=== PATIENT | female | born 1980 | race Two or more races ===

== ENCOUNTER → 2024-10-16 | Outpatient (CLI) | payer MEDICAID, SELFPAY ==
--- NOTE | 2024-10-16 13:45 | XR_ITS ---
Examination: Screening digital mammography, bilateral Computer aided detection 3-D breast Tomosynthesis, bilateral Date and time of exam: October 16, 2024 1305 hours Comparison November 18, 2009 Indication: Screening Technique: Nonmagnified MLO, CC views of the breasts to been obtained, reconstructed from 3-D Tomosynthesis images. R2 computer aided detection program utilized for evaluation of suspicious masses and/or abnormal calcifications. 3-D Tomosynthesis images obtained. Findings: The breasts are heterogeneously dense, which may obscure small masses Benign calcifications. No interval suspicious masses Impression: BI-RADS category II: Benign Findings. Recommend 1 year follow-up mammogram.
== END | disposition home or self-care (01) ==
LOC: CDIM 11:48
PROVIDERS: Referring Provider Nurse Practitioner Family; Visit Provider Nurse Practitioner Family
DX: Z12.31 Encounter for screening mammogram for malignant neoplasm of breast (principal); R92.323 Mammographic fibroglandular density, bilateral breasts; R92.1 Mammographic calcification found on diagnostic imaging of breast
CPT/HCPCS: 77063; 77067

== ENCOUNTER → 2024-11-22 | Outpatient (CLI) | payer MEDICAID, SELFPAY ==
--- NOTE | 2024-11-22 14:00 | XR_ITS ---
Examination: Retroperitoneal ultrasound, complete Technique: Multiple high resolution grayscale images of the retroperitoneum obtained, including kidneys and bladder. Exam date and time:November 22, 2024 1602 hours INDICATIONS: Bilateral flank pain beginning 6 months ago. FINDINGS: Right kidney 10.0 cm cortex 1.6 cm Left kidney 11.4 cm renal cortex 1.8 cm Mild right and moderate left renal parenchymal scar formation No hydronephrosis. No bladder mass or bladder calculi. Bladder prevoid volume 365 cc postvoid volume 0 cc IMPRESSION: Mild right moderate left renal parenchymal scar formation No hydronephrosis
== END | disposition home or self-care (01) ==
LOC: CDIM 14:11
PROVIDERS: PCP Nurse Practitioner Family; Referring Provider Nurse Practitioner Family; Visit Provider Nurse Practitioner Family
DX: N28.89 Other specified disorders of kidney and ureter (principal)
CPT/HCPCS: 76770

== ENCOUNTER 2025-04-15 13:45 | Outpatient (AMB) | payer MEDICAID, SELFPAY ==
[2025-04-15 14:15] VITALS: BP 118/72; PULSE 62; RESP 16; TEMP 36.2; O2SAT 98
--- NOTE | 2025-04-15 14:15 | GYNCLNT_ITS ---
Vital Signs 04/15/25 14:15 Weight 77.224 kg Weight Measurement Method Standing Scale BP 118/72 Blood Pressure Source Automatic Cuff Blood Pressure Location Left Upper Arm Position Sitting Respiration 16 Pulse 62 Pulse Source Monitor Temp 97.2 F Temp Source Oral Pulse Oximetry (%) 98 Oxygen Delivery Method Room Air Allergies/Home Meds Allergies & Medications Allergies No Known Allergies Allergy (Unknown, Uncoded 04/15/25 14:15) Medication Reconciliation carisoprodol 350 mg tablet 350 mg PO TID PRN BACK SPASM #0 tabs 06/28/16 [History Confirmed 04/15/25] Intake Visit Data Collection New Patient or Established: Established Patient (seen at [facility] within 3 years) Reason for Visit:: OBC Seen by Clinical Staff ONLY (RN/MA): No Fashion Director Required: No Do You Feel Safe at Home: Yes Authorities Contacted: N/A PCP or OBGYN visit in last 3 months: Yes Hx Now: No Are you currently on any form of Control: No Last menstrual period: 03/25/25 Pain Present Currently: No Pain Scale Used: Woo-Lopez/Numerical Pain scale:: 0 Smoking Status Smoking Status: Never smoker 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 1. Little interest or pleasure in doing things: not at all 2. Feeling down, depressed, or hopeless: not at all Total score: 0 PHQ-9 3. Trouble falling or staying asleep, or sleeping too much: Not at all 4. Feeling tired or having little energy: Not at all 5. Poor appetite or overeating: Not at all 6. Feeling bad about yourself - or that you are a failure or have let yourself or your family down: Not at all 7. Trouble concentrating on things, such as reading the newspaper or watching television: Not at all 8. Moving or speaking so slowly that other people could have noticed? - Or the opposite - being so fidgety or restless that you have been moving around a lot more than usual: not at all 9. Thoughts that you would be better off or of hurting yourself in some way: Not at all Total score: 0 If you checked off any problems, how difficult have these problems made it for you to do your work, take care of things at home, or get along with other people?: not difficult at all Source: Developed by Drs. Aki Main, Kiah Mccormick, Jase Hernández and colleagues, with an educational dalton from [employer]. Depression screen completed yes Social History Living Situation History Marital Status: Single Lives With: Family Housing: House Tobacco History Smoking Status: Never smoker Second Hand Smoke Exposure: No Alcohol History Alcohol Intake: Current Domestic Abuse History Do You Feel Safe at Home: Yes History of Present Illness HPI Narrative Abnormal uterine bleeding, chronic anemia, periods three times a month with heavy bleeding, hip pain, groin pain, incomplete bladder emptying, frequent urination at night, sensation of pressure Myron Mraquez is a 44-year-old female referred from [facility] for abnormal uterine bleeding. She presents with chronic anemia and frequent uterine bleeding, experiencing periods three times a month with heavy flow. The patient reports severe symptoms during her periods, including heavy bleeding, fatigue, and lightheadedness. She has not required a blood transfusion but may need one if the bleeding continues. Previous attempts to manage her symptoms with control pills were ineffective. Myron also complains of hip pain, groin pain, and incomplete bladder emptying, accompanied by frequent urination at night and a sensation of pressure. The patient's symptoms are significantly impacting her daily life, causing chronic anemia and frequent bleeding. She has not discontinued any treatments but reports that previous control pills were ineffective in managing her symptoms. Medical History: - Chronic anemia - Back injury Surgical History: - Spine surgery (microdiscectomy) in [address] Mora in [place], improved mobility - for twin delivery Obstetric History: - GPAL: L5 - One resulted in twins, delivered via - Two other pregnancies resulted in brody births Social History: - Has five children Diagnostic Test Results and Labs: - CBC (11-06-2024): Hemoglobin 12.5 g/dL, platelets 347 - A1C (11-06-2024): 5.9% - TSH (11-06-2024): 0.856 - T4 (11-06-2024): 1.11 - Testosterone (11-06-2024): 9 - Prolactin (11-06-2024): 12.4 - Estradiol (11-06-2024): 45.4 - Progesterone (11-06-2024): 2.4 - Estrogen (11-06-2024): 119 - FSH (11-06-2024): 4.7 - LH (11-06-2024): 3.1 - dHL (11-06-2024): 219 Exam General General Appearance: alert, in no apparent distress and healthy appearing Head Head exam: atraumatic Neck Neck exam: Present normal inspection and trachea midline Chest Chest inspection: Present normal inspection and symmetric chest wall rise External exam: Present normal external exam; Absent tenderness Neuro Neurological exam: Present oriented X3 Psych Psychiatric exam: Present normal affect and normal mood Office Procedures OB Clinic LOC & Office Proc's Nursing/Assessment Patient Status: Established Patient OB Clinic Nursing Assessment: Medication Reconciliation, Update PMH in EMR and Vital Signs OB Clinic Coordination of Care: Education Complex Pt/Fam, Consent,records obtained, informed consent, Lab and Imaging orders, Results/Orders obtained and Staff clarify orders Established Patient Charge Established Patient Point Assignment: 85 Established Patient Point Charge: EP Level 3 (80-115) Assessment & Plan Diagnosis / Problem List (1) Abnormal uterine bleeding (AUB): Status: Acute Plan Abnormal Uterine Bleeding Assessment: Patient presents with chronic anemia and frequent uterine bleeding, experiencing periods three times a month with heavy bleeding. Previous control pills were ineffective. Lab results show normal hemoglobin (12.5), platelets (347), and hormone levels. The patient reports severe symptoms during periods, including heavy bleeding, fatigue, and lightheadedness. Differential diagnoses include dysfunctional uterine bleeding and structural abnormalities such as fibroids. A structural screening via ultrasound is needed to rule out fibroids or other abnormalities. Plan: - Schedule abdominal ultrasound to evaluate uterine structure - Discuss treatment options based on ultrasound results - Monitor for worsening anemia and potential need for blood transfusion - Follow up after ultrasound to discuss results and treatment plan Chronic Anemia Assessment: Patient has a history of chronic anemia, likely secondary to abnormal uterine bleeding. Recent lab results show hemoglobin of 12.5, which is within normal range. However, the patient reports symptoms of fatigue and lightheadedness during periods, suggesting potential for worsening anemia if bleeding continues. Plan: - Monitor hemoglobin levels regularly - Educate patient on signs and symptoms of worsening anemia - Consider iron supplementation if hemoglobin levels decrease - Evaluate need for blood transfusion if anemia worsens significantly Urinary Symptoms Assessment: Patient reports incomplete bladder emptying, frequent urination at night, and a sensation of pressure. These symptoms may be related to the patient's uterine condition or could be a separate issue requiring further evaluation. Plan: - Evaluate urinary symptoms in context of ultrasound results - Consider urological referral if symptoms persist after addressing gynecological issues Hip and Groin Pain Assessment: Patient reports hip and groin pain. Given her history of back injury and previous spine surgery, these symptoms may be related to her spinal condition or could be a separate issue requiring further evaluation. Plan: - Assess hip and groin pain in relation to gynecological findings - Consider orthopedic or neurosurgical referral if pain persists after addressing gynecological issues
== END 2025-04-15 14:38 | disposition home or self-care (01) ==
LOC: HODSOBC 13:45
PROVIDERS: Supervising Provider Obstetrics & Gynecology; Visit Provider Obstetrics & Gynecology
DX: N93.9 Abnormal uterine and vaginal bleeding, unspecified (principal); D64.9 Anemia, unspecified
CPT/HCPCS: 99213; G0463